=== PATIENT | female | born 1975 | race Caucasian/White ===

== ENCOUNTER 2023-11-29 00:28 | Emergency (ER) | payer OTHER ==
[~2023-11-29] VITALS: Ht 160 cm; Wt 37.6 kg
[2023-11-29 00:45] VITALS: BP 100/75; PULSE 98; RESP 18; TEMP 98.1; O2SAT 98
[2023-11-29 02:34] LABS: BASOPHILS % (AUTO) 0.9 % (0.0-2.0); EOSINOPHILS # (AUTO) 0.1 K/uL (0-0.4); EOSINOPHILS % (AUTO) 1.6 % (0.0-4.0); HEMATOCRIT 28.1 % (36-48); HEMOGLOBIN 9.2 g/dL (12.0-16.0); LYMPHOCYTES # (AUTO) 1.4 K/uL (2.5-16.5); LYMPHOCYTES % (AUTO) 28.1 % (20.5-51.1); MEAN CORPUSCULAR HEMOGLOBIN 31 pg (27-31); MEAN CORPUSCULAR HGB CONC 33 g/dL (33-37); MEAN CORPUSCULAR VOLUME 94.9 fL (80-94); MONOCYTES # (AUTO) 0.6 K/uL (0.8-1.0); MONOCYTES % (AUTO) 11.7 % (1.7-9.3); NEUTROPHILS # (AUTO) 2.8 K/uL (1.8-7.7); NEUTROPHILS % (AUTO) 57.7 % (42.2-75.2); PLATELET COUNT (AUTO) 286 K/uL (140-450); RED BLOOD CELL COUNT(AUTO) 2.96 MIL/uL (4.20-5.40); RED CELL DISTRIBUTION WIDTH 16.3 % (11.6-13.7); WHITE BLOOD COUNT (AUTO) 4.8 K/uL (4.8-10.8)
[2023-11-29] MEDS ORDERED: ONDANSETRON 4 MG/2 ML VIAL ONE (02:56)
[2023-11-29] MEDS: NACL 0.9% 1,000 ML IV ONE (02:58)
[2023-11-29] MEDS: HYDROmorphone PFS 2 MG/ML SYR IVP ONE ×3 (02:59→10:43)
[2023-11-29] MEDS: ONDANSETRON 4 MG/2 ML VIAL IVP ONE (03:01)
[2023-11-29 03:20] LABS: ALBUMIN 2.7 g/dL (3.4-5.0); ANION GAP 10.9 (8-16); CALCIUM 10.4 mg/dL (8.5-10.1); CARBON DIOXIDE 30.1 mmol/L (21-32); CREATININE 0.6 mg/dL (0.6-1.3); TOTAL BILIRUBIN 0.3 mg/dL (0.0-1.0); TOTAL PROTEIN, SERUM 7.4 g/dL (6.4-8.2)
[2023-11-29 03:38] LABS: FLU A ANTIGEN negative (NEGATIVE); FLU B ANTIGEN NEGATIVE (NEGATIVE)
[2023-11-29 04:50] LABS: APPEARANCE,URINE CLEAR (CLEAR); BILIRUBIN,URINE NEGATIVE (NEGATIVE); BLOOD, URINE NEGATIVE (NEGATIVE); COLOR,URINE YELLOW (YELLOW); LEUKOCYTE ESTERASE ,URINE NEGATIVE (NEGATIVE); NITRITE, URINE NEGATIVE (NEGATIVE); PH,URINE 6.5 (5.0-9.0); PROTEIN,URINE NEGATIVE (NEGATIVE); UGLUCOSE NEGATIVE (NEGATIVE)
[2023-11-29] MEDS ORDERED: HYDROmorphone PFS 2 MG/ML SYR ONE (10:36)
[2023-11-29] MEDS: KETOROLAC 30 MG/ML VIAL IVP ONE (10:47)
[2023-11-29] MEDS: DIAZEPAM PFS 10 MG/2 ML SYR IVP ONE (10:50)
[2023-11-29] MEDS: ACETAMINOPHEN EXTRA STRENGTH 500 MG TAB PO ONE (10:56)
[2023-11-29] MEDS ORDERED: ACET-5629 PO (12:25)
[2023-11-29 12:37] VITALS: BP 108/68; PULSE 79; RESP 14; TEMP 97.5; O2SAT 100
[2023-11-29] MEDS ORDERED: LID5T TP (12:37)
== END 2023-11-29 12:37 | disposition home or self-care (01) ==
LOC: MED 00:28
DX: R19.04 Left lower quadrant abdominal swelling, mass and lump (principal); G89.29 Other chronic pain; M25.512 Pain in left shoulder; M25.511 Pain in right shoulder; M54.2 Cervicalgia; M54.9 Dorsalgia, unspecified; M79.605 Pain in left leg; M79.604 Pain in right leg; Z20.822 Contact with and (suspected) exposure to COVID-19; Z85.3 Personal history of malignant neoplasm of breast; Z85.43 Personal history of malignant neoplasm of ovary
CPT/HCPCS: 36415; 71045; 71260; 74177; 76856; 80053; 81003; 81025; 83690; 85025; 87426; 87804; 96361; 96374; 96375; 96376; 99285; J1170; J1885; J2405; J3360; J7030; Q0092; Q9967

== ENCOUNTER 2023-11-30 02:40 | Emergency (ER) | payer OTHER ==
[~2023-11-30] VITALS: Ht 160 cm; Wt 37.6 kg
[~2023-11-30 02:40] MED LIST: ACET-5629 PO; LID5T TP
[2023-11-30 03:07] VITALS: BP 126/79; PULSE 102; RESP 20; TEMP 98.3; O2SAT 97
[2023-11-30 03:45] VITALS: O2SAT 97
[2023-11-30] MEDS: NACL 0.9% 1,000 ML IV ONE (03:51)
[2023-11-30] MEDS: HYDROmorphone PFS 2 MG/ML SYR IVP ONE ×2 (03:57→06:13)
[2023-11-30] MEDS: ONDANSETRON 4 MG/2 ML VIAL IVP ONE ×2 (04:15→06:12)
[2023-11-30 06:21] VITALS: BP 126/79; PULSE 102; RESP 20; TEMP 98.3; O2SAT 97
== END 2023-11-30 06:21 | disposition home or self-care (01) ==
LOC: MED 02:40
DX: M79.10 Myalgia, unspecified site (principal); C79.9 Secondary malignant neoplasm of unspecified site; C79.81 Secondary malignant neoplasm of breast; Z79.899 Other long term (current) drug therapy
CPT/HCPCS: 96374; 96375; 96376; 99284; J1170; J2405; J7030

== ENCOUNTER 2023-12-27 07:57 | Emergency (ER) | payer OTHER ==
[~2023-12-27] VITALS: Ht 165.1 cm; Wt 40.8 kg
[2023-12-27 08:13] VITALS: BP 145/94; PULSE 87; RESP 15; TEMP 97.3; O2SAT 97
[2023-12-27] MEDS: ONDANSETRON 4 MG/2 ML VIAL IVP ONE (08:44)
[2023-12-27] MEDS: HYDROmorphone PFS 2 MG/ML SYR IVP ONE ×2 (08:45→11:08)
[2023-12-27] MEDS: METOCLOPRAMIDE 10 MG/2 ML INJ VIAL IVP ONE (09:25)
[2023-12-27 10:01] LABS: BASOPHILS % (AUTO) 1.1 % (0.0-2.0); EOSINOPHILS # (AUTO) 0.1 K/uL (0-0.4); EOSINOPHILS % (AUTO) 1.3 % (0.0-4.0); HEMOGLOBIN 10.1 g/dL (12.0-16.0); LYMPHOCYTES # (AUTO) 1.1 K/uL (2.5-16.5); LYMPHOCYTES % (AUTO) 26.2 % (20.5-51.1); MEAN CORPUSCULAR HEMOGLOBIN 31 pg (27-31); MEAN CORPUSCULAR HGB CONC 33 g/dL (33-37); MEAN CORPUSCULAR VOLUME 93.3 fL (80-94); MONOCYTES # (AUTO) 0.4 K/uL (0.8-1.0); MONOCYTES % (AUTO) 10.7 % (1.7-9.3); NEUTROPHILS # (AUTO) 2.5 K/uL (1.8-7.7); NEUTROPHILS % (AUTO) 60.7 % (42.2-75.2); PLATELET COUNT (AUTO) 253 K/uL (140-450); RED BLOOD CELL COUNT(AUTO) 3.33 MIL/uL (4.20-5.40); RED CELL DISTRIBUTION WIDTH 14.9 % (11.6-13.7)
[2023-12-27 10:19] LABS: ALBUMIN 2.5 g/dL (3.4-5.0); CALCIUM 11.9 mg/dL (8.5-10.1); CREATININE 0.9 mg/dL (0.6-1.3); POTASSIUM 3.8 mmol/L (3.5-5.1); TOTAL BILIRUBIN 0.5 mg/dL (0.0-1.0); TOTAL PROTEIN, SERUM 7.5 g/dL (6.4-8.2)
[2023-12-27 10:25] LABS: CARBON DIOXIDE 29.8 mmol/L (21-32)
[2023-12-27 11:32] VITALS: BP 133/82; PULSE 76; RESP 16; TEMP 97.3; O2SAT 99
== END 2023-12-27 11:32 | disposition home or self-care (01) ==
LOC: MED 07:57
DX: G89.3 Neoplasm related pain (acute) (chronic) (principal); R10.84 Generalized abdominal pain; Z79.899 Other long term (current) drug therapy
CPT/HCPCS: 36415; 74176; 80053; 81025; 83690; 85025; 96374; 96375; 96376; 99285; J1171; J2405; J2765

== ENCOUNTER 2023-12-29 18:00 | Emergency (ER) | payer OTHER ==
[~2023-12-29] VITALS: Ht 160 cm; Wt 38.1 kg
[2023-12-29 18:03] VITALS: BP 124/84; PULSE 116; RESP 22; TEMP 98.7; O2SAT 95
[2023-12-29] MEDS: ONDANSETRON 4 MG/2 ML VIAL IVP ONE ×2 (18:40→22:37)
[2023-12-29] MEDS: HYDROmorphone 1 MG/ML AMP IVP ONE ×3 (18:41→22:40)
[2023-12-29] MEDS: SODIUM PHOSPHATE 118 ML ENEM RC ONE (19:55)
[2023-12-29] MEDS: NACL 0.9% 1,000 ML IV ONE (20:29)
[2023-12-29] MEDS ORDERED: HYDROmorphone 1 MG/ML AMP ONE (22:31)
[2023-12-30] VITALS: BP 132/89; PULSE 101; RESP 12; TEMP 98.7; O2SAT 100
== END 2023-12-29 18:15 | disposition home or self-care (01) ==
LOC: MED 18:00
DX: G89.29 Other chronic pain (principal); K59.00 Constipation, unspecified; R03.0 Elevated blood-pressure reading, without diagnosis of hypertension; Z85.3 Personal history of malignant neoplasm of breast; Z79.899 Other long term (current) drug therapy
CPT/HCPCS: 96361; 96374; 96375; 96376; 99284; J1171; J2405; J7030